=== PATIENT | male | born 1935 | race Caucasian/White ===

== ENCOUNTER → 2016-07-04 | Outpatient (CLI) | payer OTHER | LOC: BHFA 09:30 | PROVIDERS: ATTEND Internal Medicine Cardiovascular Disease | DX: I48.91 Unspecified atrial fibrillation (principal); I47.2 Ventricular tachycardia; Z95.0 Presence of cardiac pacemaker ==

== ENCOUNTER → 2016-08-11 | Outpatient (CLI) | payer OTHER | LOC: BHFA 09:15 | PROVIDERS: ATTEND Internal Medicine Cardiovascular Disease | DX: I48.91 Unspecified atrial fibrillation (principal) ==

== ENCOUNTER → 2016-08-20 | Outpatient (CLI) | payer OTHER | LOC: BHFA 15:00 | PROVIDERS: ATTEND Internal Medicine Cardiovascular Disease | DX: I49.9 Cardiac arrhythmia, unspecified (principal) ==

== ENCOUNTER → 2016-09-10 | Outpatient (CLI) | payer OTHER | LOC: BHFA 09:30 | PROVIDERS: ATTEND Internal Medicine Cardiovascular Disease | DX: I47.1 Supraventricular tachycardia (principal) ==

== ENCOUNTER → 2018-08-30 | Outpatient (CLI) | payer OTHER | LOC: BHFA 08:30 ==